=== PATIENT | female | born 1985 | race Caucasian/White ===

== ENCOUNTER 2016-06-24 08:20 | Emergency (ER) | payer SELFPAY ==
[~2016-06-24] VITALS: Ht 165.1 cm; Wt 75.0 kg
[~2016-06-24 08:20] MED LIST: CYCL-319 PO; EPIN0.3P4 INJ; GLEE400; HYDR-906 PO; NITR-58 PO; ONDA-43 PO; PHEN-538 PO; PRED20TA PO
[2016-06-24 08:22] VITALS: Ht 165.1 cm; Wt 75.0 kg
[2016-06-24] MEDS ORDERED: ONDANSETRON 4 MG INJ IV STA (08:29)
[2016-06-24] MEDS ORDERED: SOD CHLORIDE 0.9% 1,000 ML IV STA (08:29)
[2016-06-24] MEDS ORDERED: HYDROmorphONE 1 MG/ML SYG IV STA (08:29)
[2016-06-24] MEDS ORDERED: AZIT250T6 PO (08:39)
[2016-06-24] MEDS ORDERED: AZIT500T2 PO (08:39)
[2016-06-24 09:07] LABS: ADD SCAN DIFF NO
[2016-06-24 09:11] LABS: BASOPHILS % 0.3 % (0.0-2.0); EOSINOPHILS % 0.3 % (0.0-7.0); HEMOGLOBIN 13.6 g/dl (12.0-16.0); LYMPHOCYTES # 2.4 10^3/ul (0.8-2.9); MEAN CORPUSCULAR HEMOGLOBIN 30.9 pg (29.0-33.0); MEAN CORPUSCULAR VOLUME 90.9 fl (82.0-101.0); MEAN PLATELET VOLUME 10.4 fl (7.4-10.4); MONOCYTE # 0.7 10^3/ul (0.3-0.9); MONOCYTES % 6.2 % (0.0-11.0); NEUTROPHIL # 7.6 10^3/ul (1.6-7.5); NEUTROPHILS % 70.8 % (39.0-77.0); PLATELET COUNT 389 10^3/UL (140-415); RED CELL DISTRIBUTION WIDTH 13.4 % (11.5-14.5); WHITE BLOOD COUNT 10.7 10^3/ul (4.8-10.8)
[2016-06-24 09:33] LABS: ADD UMIC YES; URINE BILIRUBIN (Dip) NEGATIVE (NEGATIVE); URINE BLOOD (Dip) 3+ (NEGATIVE); URINE COLOR LT. YELLOW (YELLOW); URINE GLUCOSE (Dip) NEGATIVE (NEGATIVE); URINE KETONES (Dip) 15 (NEGATIVE); URINE LEUKOCYTE ESTERASE (Dip) TRACE (NEGATIVE); URINE NITRITE (Dip) NEGATIVE (NEGATIVE); URINE TOTAL PROTEIN (Dip) TRACE (NEGATIVE); URINE UROBILINOGEN (Dip) 0.2 E.U./dL (0.1-1.0)
[2016-06-24 09:41] LABS: CREATININE 0.93 mg/dl (0.44-1.00); POTASSIUM 3.8 mmol/L (3.5-5.1)
[2016-06-24 09:43] LABS: BACTERIA,URINE MANY; URINE RBCS >50 /HPF ([, 0])
[2016-06-24] MEDS ORDERED: OXYC-279 PO (10:13)
[2016-06-24] MEDS ORDERED: ONDA4TAB8 PO (10:13)
[2016-06-24] MEDS ORDERED: CEPH-443 PO (10:13)
--- NOTE | 2016-06-24 10:16 | ERD ---
ER Documentation Chief Complaint Date/Time DATE: 06/24/16 TIME: 10:15 Chief Complaint RT FLANK PAIN WITH VOMITING HPI 30-year-old woman presents with right flank pain and dysuria 2 days. Patient has a long history of recurrent kidney stones and states she has had over 10-12 CT scans in the past. She also has a history of leukemia and used to take Aleve back which she is no longer taking because of financial issues. She denies weight loss, no vaginal bleeding or discharge, no hematuria, no chest pain or shortness of breath. ROS All systems reviewed and are negative except as per history of present illness. Medications Home Meds Active Scripts Ondansetron Hcl* (Zofran*) 4 Mg Tablet, 4 MG PO Q8H Y for NAUSEA AND/OR VOMITING , #12 TAB Prov:ANDRIY HADLEY MD 06/24/16 Oxycodone HCl/Acetaminophen (Percocet 5-325 mg Tablet) 1 Each Tablet, 1 EACH PO TID for PAIN LEVEL 6-10, #12 TAB Prov:ANDRIY HADLEY MD 06/24/16 Cephalexin* (Keflex*) 500 Mg Capsule, 500 MG PO QID for 7 Days, CAP Prov:ANDRIY HADLEY MD 06/24/16 Hydrocodone/Acetaminophen ([place] 5-325 Tablet) 1 Each Tablet, 1 TAB PO Q6H Y for PAIN, #20 TAB Prov:LORETTA JENKINS NP 11/13/15 Cyclobenzaprine Hcl* (Cyclobenzaprine Hcl*) 10 Mg Tablet, 10 MG PO TID, #15 TAB Prov:LORETTA JENKINS NP 11/13/15 Phenazopyridine Hcl* (Pyridium*) 200 Mg Tab, 200 MG PO TID Y for URINARY PAIN, # 6 TAB Prov:SUZANNE TEMPLETON MD 10/12/15 Nitrofurantoin Monohyd Macrocr* (Macrobid*) 100 Mg Capsr, 100 MG PO BID for 7 Days, CAP Prov:SUZANNE TEMPLETON MD 10/12/15 Prednisone* (Prednisone*) 20 Mg Tab, 20 MG PO BID for 3 Days, TAB Prov:ANDRIY HADLEY MD 07/10/15 Epinephrine (Epipen 2-Fuentes) 0.3 Mg/0.3 Ml Pen.injctr, 1 EA INJ ONCE Y for ALLERGIC REACTION, #1 EA Prov:ANDRIY HADLEY MD 07/10/15 Reported Medications Azithromycin* (Azithromycin*) 250 Mg Tablet, 250 MG PO DAILY, #4 TAB 06/24/16 Azithromycin* (Zithromax* Tri-Fuentes) 500 Mg Tablet, 500 MG PO DAILY for 3 Days, TAB 06/24/16 Ondansetron Hcl* (Zofran*) 4 Mg Tab, 4 MG PO Q4H Y for NAUSEA AND OR VOMITING, TAB 12/03/13 Imatinib Mesylate* (Gleevec*) 400 Mg Tablet, DAILY 06/19/13 Allergies Allergies: Coded Allergies: Sulfa (Sulfonamide Antibiotics) (Verified Allergy, Unknown, 10/09/15) PMhx/Soc Kidney stones, chronic pain syndrome History of Surgery: No Anesthesia Reaction: No Hx Neurological Disorder: No Hx Respiratory Disorders: No Hx Cardiac Disorders: No Hx Psychiatric Problems: No Hx Miscellaneous Medical Probl: Yes (LEUKEMIA, KIDNEY STONES) Hx Alcohol Use: Yes (SOCIALLY) Hx Substance Use: Yes (MARIJUANA) Hx Tobacco Use: Yes Smoking Status: Current every day smoker FmHx Family History: No diabetes Physical Exam Vitals Vital Signs Date Time Temp Pulse Resp B/P Pulse Ox O2 Delivery O2 Flow Rate FiO2 06/24/16 10:22 64 18 104/57 98 06/24/16 09:25 62 18 114/66 98 06/24/16 08:22 97.7 106 18 163/90 98 Physical Exam GENERAL: Well-developed, well-nourished, moderate discomfort, afebrile HEENT: Moist mucous membranes, pink conjunctiva, no cervical spine tenderness or step-off deformities, no goiter, no jaundice or icterus, extraocular movements intact without pain. No submandibular induration, and no pharyngeal erythema NEURO: Alert and oriented 3, cranial nerves II through XII intact bilaterally, pupils equal round reactive to light, no focal deficits or facial asymmetry, sensation intact distally Strength 5/5 in upper and lower extremities bilaterally CARDIAC: Tachycardic and regular, no murmurs rubs or gallops LUNGS: Clear bilaterally no wheezing crackles or stridor ABDOMEN: Soft nontender, no guarding, no rigidity, no rebound, no psoas sign no obturator sign. Normoactive bowel sounds SKIN: Warm and dry to touch, no abrasions, contusions, or hematomas, no lacerations, no ecchymosis, no target lesions, and without ulcers EXTREMITIES: No clubbing cyanosis or edema, calves are bilaterally symmetrical, no Homans sign, no popliteal cord sign. Distal pulses equal and bilateral PSYCH: Normal affect without agitation or irritability Result Diagram: 06/24/16 0857 06/24/16 0857 Results 24 hrs Laboratory Tests Test 06/24/16 08:57 06/24/16 09:09 White Blood Count 10.710^3/ul Red Blood Count 4.4010^6/ul Hemoglobin 13.6g/dl Hematocrit 40.0% Mean Corpuscular Volume 90.9fl Mean Corpuscular Hemoglobin 30.9pg Mean Corpuscular Hemoglobin Concent 34.0g/dl Red Cell Distribution Width 13.4% Platelet Count 11907^3/UL Mean Platelet Volume 10.4fl Neutrophils % 70.8% Lymphocytes % 22.0% Monocytes % 6.2% Eosinophils % 0.3% Basophils % 0.3% Nucleated Red Blood Cells % 0.0/100WBC Neutrophils # 7.610^3/ul Lymphocytes # 2.410^3/ul Monocytes # 0.710^3/ul Eosinophils # 0.010^3/ul Basophils # 0.010^3/ul Nucleated Red Blood Cells # 0.010^3/ul Sodium Level 139mmol/L Potassium Level 3.8mmol/L Chloride Level 104mmol/L Carbon Dioxide Level 22mmol/L Anion Gap 17 Blood Urea Nitrogen 9mg/dl Creatinine 0.93mg/dl Glucose Level 111mg/dl Calcium Level 10.0mg/dl Urine Color LT. YELLOW Urine Clarity CLEAR Urine pH 6.0 Urine Specific [place] 1.015 Urine Ketones 15 Urine Nitrite NEGATIVE Urine Bilirubin NEGATIVE Urine Urobilinogen 0.2 E.U./dL Urine Leukocyte Esterase TRACE Urine Microscopic RBC >50/HPF Urine Microscopic WBC 25-50/HPF Urine Epithelial Cells FEW Urine Bacteria MANY Urine Hemoglobin 3+ Urine Glucose NEGATIVE% Urine Total Protein TRACE Current Medications Medications (Trade) Dose Ordered Sig/Luis Route PRN Reason Start Time Stop Time Status Last Admin Dose Admin Sodium Chloride (NS) 1,000 ml @ 1,000 mls/hr Q1H STAT IV 06/24/16 08:29 5/8/17 09:28 DC 06/24/16 08:35 Hydromorphone HCl (Dilaudid) 1 mg ONCE STAT IV 06/24/16 08:29 06/24/16 08:31 DC 06/24/16 08:35 Ondansetron HCl (Zofran Inj) 4 mg ONCE STAT IV 06/24/16 08:29 06/24/16 08:31 DC 06/24/16 08:35 Cephalexin (Keflex) 500 mg ONCE ONCE PO 06/24/16 10:30 06/24/16 10:31 DC 06/24/16 10:18 Procedures/MDM IV line was established patient was placed on laboratory monitor rhythm strip revealed a sinus rhythm at about 80 bpm with upright P and T waves. Patient was afebrile. I administered 1 L normal saline intravenous, hydromorphone 1 mg IV and Zofran 4 mg IV with good effect. CBC and electrolytes were unremarkable, urine analysis was positive for infection I treated her here with cephalexin 500 mg p.o. We deferred imaging for now as patient has had multiple CT scans and I do not feel an ultrasound will improve diagnostic accuracy or management trainee program stores today. Differential diagnoses considered, included but not limited to acute coronary syndrome, pulmonary embolism, aortic dissection, abdominal aortic aneurysm, sepsis, stroke, meningitis, encephalitis, pneumonia, appendicitis, cholecystitis , bowel obstruction, pyelonephritis, nephrolithiasis, cystitis, as well as metabolic, hematologic, and electrolyte abnormalities. As well as abscess, cellulitis, fractures, and dislocations. Patient feels much better at this time, and vital signs are normal, symptoms have improved. I did give strict instructions to return to the ED if symptoms continue or worsen, patient will otherwise follow-up with primary care physician. Patient understood instructions and agreed to plan. Departure Diagnosis: Primary Impression: Flank pain Additional Impressions: Cystitis CML (chronic myelocytic leukemia) Condition: Good Patient Instructions: Cystitis, Flank Pain, Uncertain Cause ANDRIY HADLEY MD June 24, 2016 10:16
[2016-06-24 10:22] VITALS: BP 104/57; PULSE 64; RESP 18
[2016-06-24] MEDS ORDERED: CEPHALEXIN 500 MG CAP PO ONE (10:30)
== END 2016-06-24 10:45 | disposition home or self-care (01) ==
LOC: E/R 08:20
DX: R10.9 Unspecified abdominal pain (principal); N30.90 Cystitis, unspecified without hematuria; F17.210 Nicotine dependence, cigarettes, uncomplicated; C92.10 Chronic myeloid leukemia, BCR/ABL-positive, not having achieved remission
CPT/HCPCS: 36415; 80048; 81001; 85025; 96374; 96375; 99284; J1170; J2405; J7030; 81003

== ENCOUNTER 2016-07-04 03:36 | Emergency (ER) | payer SELFPAY ==
[~2016-07-04] VITALS: Ht 162.6 cm; Wt 72.5 kg
[~2016-07-04 03:36] MED LIST changes: +AZIT250T6 PO; +AZIT500T2 PO; +CEPH-443 PO; +ONDA4TAB8 PO; +OXYC-279 PO
[2016-07-04 03:38] VITALS: Ht 162.6 cm; Wt 72.5 kg
[2016-07-04] MEDS ORDERED: KETOROLAC 60 MG INJ IM STA (03:59)
[2016-07-04 04:10] LABS: URINE BLOOD (Dip) POC 3+ (NEGATIVE)
--- NOTE | 2016-07-04 04:14 | ERD ---
ER Documentation Chief Complaint Date/Time DATE: 07/04/16 TIME: 04:12 Chief Complaint painful urination x 1 week, worst tonite, back pain HPI 30 year old female presents here in emergency department for complaints of bilateral flank pain and dysuria for 1 week, patient has a history of kidney stones, feels like she is passing one. Patient denies hematuria. Patient is complaining of burning pain 4/10 scale, accompanied with bilateral flank pain. Patient denies any fever or chills. Patient denies any nausea or vomiting. ROS All systems reviewed and are negative except as per history of present illness. Medications Home Meds Active Scripts Tamsulosin Hcl* (Flomax*) 0.4 Mg Cap.er.24h, 0.4 MG PO QPM, #30 CAP Prov:LORETTA JENKINS NP 07/04/16 Hydrocodone/Acetaminophen ([place] 5-325 Tablet) 1 Each Tablet, 1 TAB PO Q6H Y for SEVERE PAIN LEVEL 7-10, #20 TAB Prov:LORETTA JENKINS NP 07/04/16 Ibuprofen* (Motrin*) 600 Mg Tab, 600 MG PO Q6H Y for PAIN AND OR ELEVATED TEMP, #30 TAB Prov:LORETTA JENKINS NP 07/04/16 Ondansetron Hcl* (Zofran*) 4 Mg Tablet, 4 MG PO Q8H Y for NAUSEA AND/OR VOMITING , #12 TAB Prov:ANDRIY HADLEY MD 06/24/16 Oxycodone HCl/Acetaminophen (Percocet 5-325 mg Tablet) 1 Each Tablet, 1 EACH PO TID for PAIN LEVEL 6-10, #12 TAB Prov:ANDRIY HADLEY MD 06/24/16 Cephalexin* (Keflex*) 500 Mg Capsule, 500 MG PO QID for 7 Days, CAP Prov:ANDRIY HADLEY MD 06/24/16 Hydrocodone/Acetaminophen ([place] 5-325 Tablet) 1 Each Tablet, 1 TAB PO Q6H Y for PAIN, #20 TAB Prov:LORETTA JENKINS NP 11/13/15 Cyclobenzaprine Hcl* (Cyclobenzaprine Hcl*) 10 Mg Tablet, 10 MG PO TID, #15 TAB Prov:LORETTA JENKINS NP 11/13/15 Phenazopyridine Hcl* (Pyridium*) 200 Mg Tab, 200 MG PO TID Y for URINARY PAIN, # 6 TAB Prov:SUZANNE TEMPLETON MD 10/12/15 Nitrofurantoin Monohyd Macrocr* (Macrobid*) 100 Mg Capsr, 100 MG PO BID for 7 Days, CAP Prov:SUZANNE TEMPLETON MD 10/12/15 Prednisone* (Prednisone*) 20 Mg Tab, 20 MG PO BID for 3 Days, TAB Prov:ANDRIY HADLEY MD 07/10/15 Epinephrine (Epipen 2-Fuentes) 0.3 Mg/0.3 Ml Pen.injctr, 1 EA INJ ONCE Y for ALLERGIC REACTION, #1 EA Prov:ANDRIY HADLEY MD 07/10/15 Reported Medications Azithromycin* (Azithromycin*) 250 Mg Tablet, 250 MG PO DAILY, #4 TAB 06/24/16 Azithromycin* (Zithromax* Tri-Fuentes) 500 Mg Tablet, 500 MG PO DAILY for 3 Days, TAB 06/24/16 Ondansetron Hcl* (Zofran*) 4 Mg Tab, 4 MG PO Q4H Y for NAUSEA AND OR VOMITING, TAB 12/03/13 Imatinib Mesylate* (Gleevec*) 400 Mg Tablet, DAILY 06/19/13 Allergies Allergies: Coded Allergies: Sulfa (Sulfonamide Antibiotics) (Verified Allergy, Unknown, 10/09/15) PMhx/Soc History of Surgery: No Anesthesia Reaction: No Hx Neurological Disorder: No Hx Respiratory Disorders: No Hx Cardiac Disorders: No Hx Psychiatric Problems: No Hx Miscellaneous Medical Probl: Yes (LEUKEMIA, KIDNEY STONES) Hx Alcohol Use: Yes (SOCIALLY) Hx Substance Use: Yes (MARIJUANA) Hx Tobacco Use: Yes Smoking Status: Current every day smoker FmHx Family History: No coronary disease, No diabetes, No other Physical Exam Vitals Vital Signs Date Time Temp Pulse Resp B/P Pulse Ox O2 Delivery O2 Flow Rate FiO2 07/04/16 03:38 98.3 76 20 138/75 100 Physical Exam GENERAL: The patient is well developed and appropriate for usual state of health, in no apparent distress. CHEST: Clear to auscultation bilaterally. There are no rales, wheezes or rhonchi. HEART: Regular rate and rhythm. No murmurs, clicks, rubs or gallops. No S3 or S4. ABDOMEN: Soft, nontender and nondistended. Good bowel sounds. No rebound or guarding. No gross peritonitis. No gross organomegaly or masses. No Carter sign or McBurney point tenderness. BACK: No midline or flank tenderness. EXTREMITIES: Equal pulses bilaterally. There is no peripheral clubbing, cyanosis or edema. No focal swelling or erythema. Full range of motion. Grossly neurovascularly intact. NEURO: Alert and oriented. Cranial nerves 2-12 intact. Motor strength in all 4 extremities with 5/5 strength. Sensation grossly intact. Normal speech and gait. SKIN: There is no apparent rash or petechia. The skin is warm and dry. HEMATOLOGIC AND LYMPHATIC: There is no evidence of excessive bruising or lymphedema. No gross cervical, axillary, or inguinal lymphadenopathy. Results 24 hrs Laboratory Tests Test 07/04/16 04:12 Bedside Urine pH (LAB) 5.5 Bedside Urine Protein (LAB) 2+ Bedside Urine Glucose (UA) Negative Bedside Urine Ketones (LAB) Negative Bedside Urine Blood 3+ Bedside Urine Nitrite (LAB) Negative Bedside Urine Leukocyte Esterase (L Negative Current Medications Medications (Trade) Dose Ordered Sig/Luis Route PRN Reason Start Time Stop Time Status Last Admin Dose Admin Ketorolac Tromethamine (Toradol) 60 mg ONCE STAT IM 07/04/16 03:59 07/04/16 04:00 DC 07/04/16 04:15 Acetaminophen/ Hydrocodone Bitart ([place] (5/325)) 1 tab ONCE ONCE PO 07/04/16 05:30 07/04/16 05:31 Phenazopyridine HCl (Pyridium) 200 mg ONCE ONCE PO 07/04/16 05:30 07/04/16 05:31 Patient was given medication for pain here in emergency department, after treatment, patient verbalized feeling much better. Patient's pain is improved. PROCEDURE: CT Abdomen and pelvis without contrast. CLINICAL INDICATION: Abdominal pain. TECHNIQUE: CT scan of the abdomen and pelvis was performed on a multi- detector high-resolution CT scanner. Contiguous axial images were obtained from the lung bases to the ischial tuberosities without intravenous contrast. Coronal and sagittal reformatted images were also obtained. Images were reviewed on the PACS workstation. One or more of the following dose reduction techniques were used: - Automated exposure control. - Adjustment of the mA and/or kV according to patient size. - Use of iterative reconstruction technique. Exam CTD/vol = 9.70 mGy. Total exam DLP = 528.48 mGy-cm. COMPARISON: 10/29/2013. FINDINGS: Evaluation of the lung bases demonstrates no pleural or parenchymal disease. Abdomen: The liver is normal in size. There is no focal mass or dilatation of the biliary tree. The gallbladder is not distended. The spleen, pancreas and bilateral adrenal glands are within normal limits. Bilateral kidneys are normal in size with no contour deforming mass identified. There are 1-2 mm renal calculi within the mid right kidney. There is mild right-sided hydronephrosis. There is no retroperitoneal adenopathy. The abdominal aorta is of normal caliber. There is no abnormal bowel wall thickening or distension. There is no bowel obstruction or free air. A normal appendix is identified. There is no diverticulosis or diverticulitis. There is no ascites. Pelvis: The bladder is unremarkable. There is a 5 x 2 mm calculus at the right ureterovesicular junction. The uterus and adnexa are within normal limits. There is mild pelvic free fluid. There is no significant pelvic adenopathy. Evaluation of the osseous structures demonstrates no suspicious lytic or blastic lesion. There concave deformities within the superior endplates of T12, L1 and L2 vertebral bodies compatible with Schmorl's nodes. IMPRESSION: Right ureterovesicular junction 5 x 2 mm calculus with mild right-sided hydronephrosis. Right renal calculi. Mild pelvic free fluid. .Jeb Jaime MD, MD Date Time Electronically viewed and signed by .Jeb Jaime MD, MD on 07/04/2016 04:44 .T/ CC: LORETTA JENKINS GRADES 1 THROUGH 5 TEACHER Procedures/MDM Medical Decision Making: Patient symptoms is likely consistent with renal colic. No symptoms of septic stone at this time. No hydronephrosis noted. There is low suspicion for abdominal emergencies at this time. Patients abdominal exam is normal at this time. Patients radiology exam does not show any abdominal emergencies at this time. There is low suspicion for appendicitis, cholecystitis, abdominal aortic aneurysms or peritonitis at this time. There is low suspicion for sepsis. Patient appears well and is hemodynamically stable. Disposition: Home. Condition: Stable Prescription [place], Pyridium, tamsulosin Instructions: Patient is advised to take medications as prescribed. Patient is advised to rest, increase fluid intake and do see urology specialist. Patient is advised that if symptoms are worse, severe abdominal pain, uncontrolled vomiting, high fever, severe flank pain, worst signs and symptoms, to return to the emergency department immediately. Otherwise, patient can follow up with primary care doctor in 5-7 days. Departure Diagnosis: Primary Impression: Renal colic Condition: Stable Patient Instructions: Kidney Stone W/ Colic Additional Instructions: Patient is advised to take medications as prescribed. Patient is advised to rest , increase fluid intake and do see urology specialist. Patient is advised that if symptoms are worse, severe abdominal pain, uncontrolled vomiting, high fever , severe flank pain, worst signs and symptoms, to return to the emergency department immediately. Otherwise, patient can follow up with primary care doctor in 5-7 days. LORETTA JENKINS NP July 04, 2016 04:14
--- NOTE | 2016-07-04 04:44 | RADRPT ---
PROCEDURE: CT Abdomen and pelvis without contrast. CLINICAL INDICATION: Abdominal pain. TECHNIQUE: CT scan of the abdomen and pelvis was performed on a multi-detector high-resolution CT scanner. Contiguous axial images were obtained from the lung bases to the ischial tuberosities wit hout intravenous contrast. Coronal and sagittal reformatted images were also obtained. Images were reviewed on the PACS workstation. One or more of the following dose reduction techniques were used: - Automated exposure control. - Adjustment of the mA and/or kV according to patient size. - Use of iterative reconstruction technique. Exam CTD/vol = 9.70 mGy. Total exam DLP = 528.48 mGy-cm. COMPARISON: 10/29/2013. FINDINGS: Evaluation of the lung bases demonstrates no pleural or parenchymal disease. Abdomen: The liver is normal in size. There is no focal mass or dilatation of the biliary tree. T he gallbladder is not distended. The spleen, pancreas and bilateral adrenal glands are within carly l limits. Bilateral kidneys are normal in size with no contour deforming mass identified. There ar e 1-2 mm renal calculi within the mid right kidney. There is mild right-sided hydronephrosis. Ther e is no retroperitoneal adenopathy. The abdominal aorta is of normal caliber. There is no abnormal bowel wall thickening or distension. There is no bowel obstruction or free air . A normal appendix is identified. There is no diverticulosis or diverticulitis. There is no asci sanna. Pelvis: The bladder is unremarkable. There is a 5 x 2 mm calculus at the right ureterovesicular mahsa ction. The uterus and adnexa are within normal limits. There is mild pelvic free fluid. There is n o significant pelvic adenopathy. Evaluation of the osseous structures demonstrates no suspicious lytic or blastic lesion. There conca ve deformities within the superior endplates of T12, L1 and L2 vertebral bodies compatible with Schm orl's nodes. IMPRESSION: Right ureterovesicular junction 5 x 2 mm calculus with mild right-sided hydronephrosis. Right renal calculi. Mild pelvic free fluid. .Jeb Jaime MD, Date Time Electronically viewed and signed by .Jeb Jaime MD, on 07/04/2016 04:44 .T/
[2016-07-04] MEDS ORDERED: TAMS-14 PO (05:13)
[2016-07-04] MEDS ORDERED: IBUP-1542 PO (05:13)
[2016-07-04] MEDS ORDERED: HYDR-906 PO (05:13)
[2016-07-04] MEDS ORDERED: HYDROCODONE/APAP (5/325) TAB PO ONE (05:30)
[2016-07-04] MEDS ORDERED: PHENAZOPYRIDINE 100 MG TAB PO ONE (05:30)
== END 2016-07-04 05:38 | disposition home or self-care (01) ==
LOC: FTE 03:36
DX: N23 Unspecified renal colic (principal); F17.210 Nicotine dependence, cigarettes, uncomplicated
CPT/HCPCS: 74176; 81003; 96372; 99285; J1885